=== PATIENT | female | born 1955 | race Caucasian/White ===

== ENCOUNTER → 2018-01-17 | Outpatient (CLI) | payer OTHER ==
--- NOTE | 2018-01-28 11:57 | SLEEP ---
[address] [address] SLEEP STUDY REPORT Name: DHEERAJ ISAAC I Room: [facility]#: [id number] Admission: 01/17/18 Attend Phys: Shirley Rendon MD Discharge: Date of : 57 Report #: [id number] THIS REPORT FOR: //name// CC: Shirley Rendon This study has been reviewed in its entirety by a board certified sleep specialist REFERRING PHYSICIAN: Shirley Rendon MD. TYPE OF STUDY: Sleep study split night diagnostic and CPAP titration. INDICATION: Known obstructive sleep apnea. METHOD: The following parameters were monitored: Frontal, central and occipital EEG; electro-oculogram; submentalis EMG; nasal and oral airflow; anterior tibialis EMG; body position and electrocardiogram. Additionally, thoracic and abdominal movements were recorded by inductance plethysmography. Oxygen saturation was monitored using pulse oximeter. The tracing was scored using 30-second epochs. Hypopneas were scored per the [employer] [employer] definition using the 4% desaturation criteria. This was a split night study. DIAGNOSTIC PORTION OF THE STUDY: Total sleep time was 43 minutes. Sleep efficiency was low at 29.6% ,with a total recording time 145.1 minutes. Latency to sleep was 42 minutes. SLEEP STAGING: During the diagnostic portion of the study, stage N1 of 10.6% of total sleep time, stage N2 was 73.4% of total sleep time, stage N3 of 3.2% of total sleep time, stage REM 12.9%, total sleep time. The patient slept mostly on the right lateral position during the diagnostic portion of the study. During the diagnostic portion of the study, the patient had 3 central apneas, with 17 mixed apneas and 45 obstructive apneas. In addition to that, the patient had a total of 7 hypopneas with overall apnea-hypopnea index of 100.5 per hour. The average O2 saturation during this diagnostic portion of the study was 94%. The lowest O2 saturation recorded was 77%. The average heart rate was 70 beats per minute. No arrhythmias were reported and the limb movement index was 26.5 per hour. Occasional snoring was reported. Titration portion of the study was documented. Per the service technician copier note, the patient was intolerant to CPAP. The patient was titrated on a BiPAP pressure starting at a pressure of 8/4 and titrated up to a pressure of 18/13. At level of 17/13 cm of water, the patient slept for 49.8 minutes, with 15.7 minutes during supine REM sleep. The apnea-hypopnea index was 18.1, [place] [address] SLEEP STUDY REPORT Name: MARLINDHEERAJ I Room: [facility]#: [id number] Admission: 01/17/18 Attend Phys: Shirley Rendon MD Discharge: Date of : 57 Report #: [id number] saturation 88%. The average O2 saturation during the titration portion of the study was 95% and the limb movement index remained elevated at 31.5 per hour. IMPRESSION: 1. Severe obstructive sleep apnea with apnea-hypopnea index of 100.5 per hour and oxygen desaturation to a nikunj of 77%. Please note the diagnostic portion of the study was limited by poor sleep efficiency. 2. Elevated periodic limb movement of sleep. Clinical correlation is recommended. RECOMMENDATIONS: 1. A trial of BiPAP therapy at a pressure of 17/13 cm of water, the patient was intolerant to CPAP per the records. 2. Close clinical followup and data download. 3. After establishing BiPAP therapy, would recommend overnight oximetry on BiPAP to determine the patient needs for oxygen. 4. Avoid sedatives, hypnotics or alcohol close to bedtime. 5. Recommend maintaining ideal body weight. 6. Recommend avoiding driving or operating machinery while drowsy. <ELECTRONICALLY SIGNED> By: Sabas Bruner MD 01/28/18 [id number] Dupree MD /nt
== END ==
LOC: M.SLEEPLAB 19:21
DX: G47.33 Obstructive sleep apnea (adult) (pediatric) (principal)